=== PATIENT | male | born 1985 | race Caucasian/White ===

== ENCOUNTER 2018-02-21 09:08 | Emergency (ER) | payer SELFPAY ==
[~2018-02-21] VITALS: Ht 167.6 cm; Wt 77.0 kg
[~2018-02-21 09:08] MED LIST: HYDR-3533 PO; TAB-TAB PO
[2018-02-21 09:20] VITALS: BP 136/71; PULSE 98; RESP 20; TEMP 98.2; O2SAT 98
[2018-02-21] MEDS ORDERED: BACT800T5 PO (10:06)
--- NOTE | 2018-02-21 10:15 | PD ---
HPI Chief Complaint: Skin Problem Time Seen by Provider: 09:36 Travel History International Travel<30 days: No Contact w/Intl Traveler<30days: No Traveled to known affect area: No History of Present Illness HPI This patient complains of an infected skin lesion on his right forearm. Duration 4 days. Severity is moderate. No fever. He denies IV drug use. PFSH Past Medical History ADD: Yes Past Surgical History Oral Surgery: Yes Social History Alcohol Use: Yes (COUPLE TIMES PER MONTH) Tobacco Use: Yes (OCCASIONAL CIGAR) Substance Use: Yes (hx marijuana) Allergies-Medications (Allergen,Severity, Reaction): Coded Allergies: No Known Allergies (Verified , 08/19/15) Reported Meds & Prescriptions Reported Meds & Active Scripts Active Bactrim DS (Sulfamethoxazole-Trimethoprim) 800-160 Mg Tab 1 Tab PO BID Lortab 5 mg/325 mg (Hydrocodone/Acetaminophen 5 mg/325 mg) 1 Tab 1 Tab PO Q6H PRN Reported Multivitamin (Multivitamins) 1 Tab Tab 1 Tab PO DAILY Review of Systems General / Constitutional: No: Fever HENT: No: Headaches Cardiovascular: No: Chest Pain or Discomfort Physical Exam Narrative Psych: Normal mood and affect. Normal insight and judgment. SKIN: Focused skin assessment reveals no rash or ulcers. Skin is warm and dry. Palpation shows no induration or nodules. On the right forearm distal to the elbow is a erythematous circular area. There is no induration or fluctuance or active drainage. No indication for incision and drainage. It does not involve the elbow joint. Data Data Last Documented VS Vital Signs Date Time Temp Pulse Resp B/P (MAP) Pulse Ox O2 Delivery O2 Flow Rate FiO2 02/21/18 09:20 98.2 98 20 136/71 (92) 98 MDM Medical Decision Making Medical Screen Exam Complete: Yes Emergency Medical Condition: Yes Medical Record Reviewed: Yes Differential Diagnosis Cellulitis, boil, abscess Narrative Course I have reviewed the patient's electronic medical record. I 1 week of Bactrim prescribed. Warm compresses discussed. Diagnosis Primary Impression: Infected lesion of skin Additional Instructions: The patient was advised to follow up with their physician and return if they worsen. Med/Other Pt SpecificInfo: Prescription(s) given Scripts Sulfamethoxazole-Trimethoprim (Bactrim DS) 800-160 Mg Tab 1 TAB PO BID for Infection, #14 TAB 0 Refills Prov: Nguyễn Ovalle MD 02/21/18 Disposition: 01 DISCHARGE HOME Condition: Stable Nguyễn Ovalle MD Feb 21, 2018 10:15
== END 2018-02-21 10:35 | disposition home or self-care (01) ==
LOC: NEPD 09:08
DX: L08.89 Other specified local infections of the skin and subcutaneous tissue (principal); Z72.0 Tobacco use
CPT/HCPCS: 99283